=== PATIENT | female | born 1960 | race Caucasian/White ===

== ENCOUNTER 2016-12-17 20:10 | Inpatient (IN) | payer MEDICARE, MEDICAID ==
[~2016-12-17] VITALS: Ht 170.2 cm; Wt 110.5 kg
--- NOTE | 2016-12-17 20:12 | ED.REPORT ---
HPI-Chest Pain 40 and Over Date of Service Dec 17, 2016 ED Provider: Braulio Alcantara MD Pt is a 54 year old female with a history of "aortic problems" per family is brought to the ED via EMS due to a possible STEMI. Per pt's family, the pt was at the pool this evening when she suddenly complained of a headache and chest pain. She then began speaking nonsensically. The pt did not fall or hit her head. Medics found the pt bradycardic with a rate in the 40's and hypotensive with altered mental status, and she received atropine and dopamine en route. History is very limited due to pt lack of participation in the interview. Nursing Notes Stated Complaint: CHEST PAIN Nursing Notes Reviewed: Yes Allergies: Coded Allergies: Unable to Assess (Unverified Allergy, Unknown, 12/17/16) Scheduled PRN Hydromorphone (Hydromorphone) 2 Mg Tablet 2 MG PO q6hr PRN PRN Pain Promethazine (Promethazine) 25 Mg Tablet 25 MG PO Q6H PRN PRN For Nausea Sumatriptan (Imitrex) 25 Mg Tablet 25 MG PO PRN migraine diphenhydrAMINE HCl (Benadryl) 25 Mg Capsule 25 MG PO HS PRN PRN General Time Seen by MD: 20:10 Chief Complaint Chest pain Hx Obtained From: Patient, EMS Arrived By: Ambulance Sudden in Onset?: Yes Onset Occurred: 31 - 45 minutes ago Symptom Duration: Since onset Recent Healthcare: No recent hospitalization Similar Sx Previous: No Past Medical History Past Medical History "aortic problems" Past Surgical History none reported Smoking History Unknown if Ever Smoker Ambulatory Status Independent Unable to Obtain History Past medical history (unable to obtain due to pt condition and altered mental status), Past surgical history (unable to obtain due to pt condition and altered mental status) Review of Systems Unable to Obtain ROS Patient condition (unable to obtain due to pt condition and altered mental status) Physical Exam Initial Vital Signs Vital Signs (First) Date Time Temp Pulse Resp B/P Pulse Ox O2 Delivery O2 Flow Rate FiO2 12/17/16 20:13 36.2 75 22 118/34 98 Nasal Cannula 3 Initial VS: Reviewed General/Constitutional: Awake, Alert Respiratory / Chest: Atraumatic, Breath sounds NL, Breath sounds = bilat, No respiratory distress Cardiovascular: Heart rate NL, Regular rhythm, Heart sounds NL, No gallop, No murmurs, No rubs Abdomen: Atraumatic, Soft, Non-tender, No distention Neck: Atraumatic, Supple, Full range of motion Back: Atraumatic, Full range of motion Lower Extremity / Pelvis / MS: Atraumatic, Full range of motion Skin: Atraumatic, Warm, Dry pale and poorly perfused Neurologic: Speech NL, No motor deficits, No sensory deficits Psychiatric: agitated moaning Head / Eyes: Atraumatic, Normocephalic, PERRL, EOMI ENT: Atraumatic, Airway patent, Mucous membranes moist Upper Extremity / MS: Atraumatic, Full range of motion Interpretation & Diagnostics Lab Results Interpretation Result Diagram: 12/17/16 2322 12/17/16 2035 Test 12/17/16 20:35 Pro-B-Type Natriuretic Peptide 230.6pg/mL (0-249) ECG Interpretation ECG Interpretation: sinus rhythm with a rate of [address] elevation, inferior leads with reciprocal ST depressions no prior EKG available for comparison Time: 20:21 Interpreted by: ED physician CT Head Interpretation IMPRESSION: Prominent and persistent movement by patient. Gross blood is not identified. Small contusions or extra-axial blood cannot be excluded. Procedures Intubation Time: 20:44 Procedure Performed by: ED physician Consent / Setup / Site Prep: No consent - emergent, Time-out performed, Oxygen administered, Pulse oximeter applied, book coverer applied, Hand hygiene observed, Stand sterile technique Patient Position: Sniff position Blade / ET Tube / Route: Hardin scope, Route: oral Procedural Sedation/Analgesia: Sedation: Etomidate Neuromuscular Agent: Rocuronium ET Confirmation: Direct visualization, BS equal, End tidal CO2 device Secured / Marked: Tube marked at teeth Complications: None Post-Procedure: Condition improved, Tolerated procedure well, Patient stable Re-Eval/Medical Decision Med Decision/Clinical Course Patient is a 56-year-old female who presents to the emergency department by EMS with concern for inferior wall ST elevation KS. History is extremely limited as medics have limited information on the patient and she is unable to provide any information. She was reportedly complaining of headache and chest pain prior to becoming altered, confused. In route she was noted to be bradycardic with ST elevation in the inferior leads and became hypotensive at which time atropine was administered without effect and she was placed on a dopamine infusion with improvement in her blood pressure and heart rate. Upon arrival to the emergency department 324 mg of aspirin were given. Given her altered mental status there was some concern for possible intracranial hemorrhage though this did seem unlikely given her overall clinical picture. She was very agitated, thrashing and we are unable to obtain head CT. Due to her profound altered mental status I proceeded with rapid sequence intubation as documented above. She was maintained on dopamine infusion due to her hypotension and bradycardia. EKG: sinus rhythm with a rate of [address] elevation, inferior leads with reciprocal ST depressions no prior EKG available for comparison CT Head: IMPRESSION: Prominent and persistent movement by patient. Gross blood is not identified. Small contusions or extra-axial blood cannot be excluded. Left wrist that is notable as below: WBC 22.6 CBC otherwise unremarkable CMP unremarkable except mildly elevated AST troponin negative BNP 230.6 Given EKG findings she was seen and evaluated by cardiology Dr. Parmar and emergently taken for catheterization. Given good bilateral breath sounds, good end-tidal CO2 tracing, good oxygenation and visualization of the endotracheal tube through the vocal cords incision was made to defer chest x-ray in order to facilitate rapid transport to the crime lab technician. Plan for confirmation of tube placement in the crime lab technician. Source of Hx: EMS Time of Eval: 20:24 Re-Evaluation/Progress Note: Pt rechecked, who is stable. The plan for admission to crime lab technician is discussed. Time of Eval: 20:44 Re-Evaluation/Progress Note: Pt rechecked and intubated without complication. Consultation #1: Referral / Consult Name: Pavithar Khan MD Consulted With: Cardiology Call Returned at: 19:58 Train Planner: Will see patient, Agrees with eval, Agrees with plan Note: Spoke with Dr. Khan, cardiology, who agrees with the evaluation and will see the pt. Consultation #2: Referral / Consult Name: Pavithra Khan MD Consulted With: Cardiology Call Returned at: 20:22 Train Planner: Agrees with eval, Agrees with plan, Accepts admit Note: Consulted with Dr. Khan, who agrees to admit the pt to crime lab technician. Consultation #3: Referral / Consult Name: Ade Ibanez DO Consulted With: Hospitalist Call Returned at: 21:09 Train Planner: Agrees with eval, Agrees with plan, Accepts admit Note: Spoke with Dr. Ibanez, hospitalist, regarding pt's case. Dr. Ibanez agrees with the evaluation and agrees to admit the pt following crime lab technician. Counseled Regarding: Diagnosis, Lab results, Need for admission Discharge & Departure Primary Impression: ST elevation myocardial infarction (STEMI) of inferior wall Additional Impressions: Hypotension Hypotension type: unspecified hypotension type Qualified Code: I95.9 - Hypotension, unspecified Bradycardia Chest pain Chest pain type: unspecified Qualified Code: R07.9 - Chest pain, unspecified Altered mental status Altered mental status type: unspecified Qualified Code: R41.82 - Altered mental status, unspecified Disposition: ADMITTED TO HOSPITAL Discharge Condition All VS Reviewed: Yes Condition: Stable Referrals: [facility] Crit Care Except Billable Proc Time Spent: 30-74 minutes Services Performed: Patient management by me, Time spent at bedside, Reviewing test results, Reviewing imaging, Discussing patient care, Documentation in record, Time with fam/surrogate Scribe Attestation Portions of this note were transcribed by Olga Fernandez. I, Dr. Alcantara personally performed the history, physical exam and medical decision-making; I reviewed and confirmed the accuracy of the information in the transcribed note. copies to: [facility] Braulio Alcantara MD Dec 17, 2016 20:11 OLGA FERNANDEZ Dec 17, 2016 20:20 Med Decision/Clinical Course EKG: sinus rhythm with a rate of [address] elevation, inferior leads with reciprocal ST depressions no prior EKG available for comparison CT Head: IMPRESSION: Prominent and persistent movement by patient. Gross blood is not identified. Small contusions or extra-axial blood cannot be excluded. WBC 22.6 CBC otherwise unremarkable CMP unremarkable except mildly elevated AST troponin negative BNP 230.6 Source of Hx: EMS Time of Eval: 20:24 Re-Evaluation/Progress Note: Pt rechecked, who is stable. The plan for admission to crime lab technician is discussed. Time of Eval: 20:44 Re-Evaluation/Progress Note: Pt rechecked and intubated without complication. Consultation #1: Referral / Consult Name: Pavithra Khan MD Consulted With: Cardiology Call Returned at: 19:58 Train Planner: Will see patient, Agrees with eval, Agrees with plan Note: Spoke with Dr. Khan, cardiology, who agrees with the evaluation and will see the pt. Consultation #2: Referral / Consult Name: Pavithra Khan MD Consulted With: Cardiology Call Returned at: 20:22 Train Planner: Agrees with eval, Agrees with plan, Accepts admit Note: Consulted with Dr. Khan, who agrees to admit the pt to crime lab technician. Consultation #3: Referral / Consult Name: Ade Ibanez DO Consulted With: Hospitalist Call Returned at: 21:09 Train Planner: Agrees with eval, Agrees with plan, Accepts admit Note: Spoke with Dr. Ibanez, hospitalist, regarding pt's case. Dr. Ibanez agrees with the evaluation and agrees to admit the pt following crime lab technician. Counseled Regarding: Diagnosis, Lab results, Need for admission Discharge & Departure Primary Impression: ST elevation myocardial infarction (STEMI) of inferior wall Additional Impressions: Hypotension Hypotension type: unspecified hypotension type Qualified Code: I95.9 - Hypotension, unspecified Bradycardia Chest pain Chest pain type: unspecified Qualified Code: R07.9 - Chest pain, unspecified Altered mental status Altered mental status type: unspecified Qualified Code: R41.82 - Altered mental status, unspecified Disposition: ADMITTED TO HOSPITAL Discharge Condition All VS Reviewed: Yes Condition: Stable Referrals: [facility] Scribe Attestation Portions of this note were transcribed by Olga Fernandez. I, Dr. Alcantara personally performed the history, physical exam and medical decision-making; I reviewed and confirmed the accuracy of the information in the transcribed note. copies to: [facility] Braulio Alcantara MD Dec 17, 2016 20:11 OLGA FERNANDEZ Dec 17, 2016 20:20
[2016-12-17 20:13] VITALS: BP 118/34; PULSE 75; RESP 22; O2SAT 98
[2016-12-17] MEDS ORDERED: Ondansetron 2 mg/mL 2 mL Inj ONE (20:16)
[2016-12-17] MEDS ORDERED: Heparin 5,000 Unit/mL Inj ONE (20:19)
[2016-12-17] MEDS ORDERED: Heparin 25,000 Unit/500 mL 0.45% NS Premix IV ONE (20:19)
[2016-12-17] MEDS ORDERED: HYDR2TAB28 PO (20:26)
[2016-12-17] MEDS ORDERED: DIPH25CA6 PO (20:26)
[2016-12-17] MEDS ORDERED: IMI25 PO (20:26)
[2016-12-17] MEDS ORDERED: PROM25TA14 PO (20:26)
[2016-12-17] MEDS ORDERED: Heparin 1,000 Units/500 mL NS Premix IV ONE ×2 (20:27→21:46)
[2016-12-17] MEDS ORDERED: Nitroglycerin 50,000 mcg/250 mL D5W Premix IV ONE (20:27)
[2016-12-17] MEDS ORDERED: Heparin 10,000 Unit/1,000 mL NS Premix IV ONE (20:28)
[2016-12-17] MEDS ORDERED: Heparin 1,000 Unit/mL 10 mL Inj ONE (20:28)
[2016-12-17] MEDS ORDERED: Atropine 1 mg/10 mL (Code) Syringe ONE (20:31)
[2016-12-17] MEDS ORDERED: Propofol 10,000 mCg/mL 100 mL Inj ONE (20:41)
[2016-12-17] MEDS ORDERED: Midazolam 100 mg/100 mL Premix IV PRN (20:45)
[2016-12-17] MEDS ORDERED: fentaNYL 2,500 mCg/250 mL IV Premix IV SCH (20:45)
[2016-12-17 20:47] VITALS: BP 120/92; PULSE 64; RESP 24; O2SAT 94
[2016-12-17 20:50] VITALS: O2SAT 100
[2016-12-17 20:53] VITALS: BP 135/105; PULSE 84; RESP 26; O2SAT 95
--- NOTE | 2016-12-17 20:56 | DRSVH ---
PROCEDURE: CT BRAIN WITHOUT CONTRAST ([id number]) INDICATIONS: ams, inf CT, pre-heparin TECHNIQUE: Noncontrast 4.5 mm thick angled axial sections acquired from the foramen magnum to the vertex, with c oronal reformats. COMPARISON: None. FINDINGS: Image quality: Poor because of patient movement. Without contrast at bone settings the sinuses and mastoids are grossly clear. The Intracranially because of patient movement the upper half of the brain is essentially nondiagnostic. No parenchymal blood is seen the small contusions or extra-axial fluid collections cannot be excluded although none are suspected. IMPRESSION: Prominent and persistent movement by patient. Gross blood is not identified. Small contus ions or extra-axial blood cannot be excluded. Dictated by: Maxim Royal M.D. on 12/17/2016 at 20:51 Approved by: Maxim Royal M.D. on 12/17/2016 at 20:54
[2016-12-17 21:03] LABS: BASOPHILS % (AUTO) 0.3 % (0-3); EOSINOPHILS % (AUTO) 0.6 % (0-5); NEUTROPHILS % (AUTO) 75.4 % (40-74); Platelet Count 239 bil/L (150-400)
[2016-12-17 21:10] LABS: TROPONIN T 0.01 ug/L (0.0-0.011)
[2016-12-17 21:21] LABS: Magnesium 1.8 mg/dL (1.6-2.6)
[2016-12-17] MEDS ORDERED: Polyethylene Glycol (PEG) 17 Gm Powder PO PRN (21:25)
[2016-12-17] MEDS ORDERED: Alum-Mag Hydrox-Simeth 30 mL Suspension PO PRN (21:25)
[2016-12-17] MEDS ORDERED: Ondansetron 2 mg/mL 2 mL Inj IVPUSH PRN ×2 (21:25→23:40)
[2016-12-17] MEDS ORDERED: Amiodarone 150 mg/100 mL D5W Premix IV ONE (21:36)
[2016-12-17] MEDS ORDERED: Amiodarone 50 mg/mL 3 mL Inj ONE (21:43)
[2016-12-17] MEDS ORDERED: Sodium Bicarb (50 mEq) 8.4% 1 mEq/mL 50 mL Syringe ONE (22:01)
[2016-12-17] MEDS ORDERED: fentaNYL 2,500 mCg/250 mL 2,500 MCG in IV Premix 1 EACH IV SCH (22:02)
--- NOTE | 2016-12-17 23:12 | ABG ---
DateTimeAnalyzed 23:06:00 -_ pH ____7.336 - 7.350 7.450 pCO2 ___36.5__ -mmHg 35.0 45.0 pO2 391 -mmHg 69.0 116 HCO3- ___19.0__ -mmol/L 22.0 26.0 ABE ___-5.7__ -mmol/L -2.0 2.0 tHb ___13.7__ -g/dL 12.0 18.0 O2Hb ___98.0__ -% COHb ____0.7__ -% 0.0 1.5 MetHb ____0.8__ -% 0.4 1.5 sO2 ___99.5__ -% FIO2 __100.0__ -% PEEP ____5.0__ -cmH2O Set_RR ___20.0__ -b/min Vt __480.0__ -L Drawn By MD - Date/Time Notified____ 23:12:00 -_ Spontaneous_RR ___20.0__ -b/min Oxygen Device 1 VENTILATOR - Notified By MD - Notified Whom RN R.GOLDEN - B 755 -mmHg tO2 ___19.8__ -Vol% Maco test N/A -
[2016-12-17 23:25] LABS: BASOPHILS % (AUTO) 0.2 % (0-3); EOSINOPHILS % (AUTO) 0 % (0-5); MONOCYTES % (AUTO) 13.7 % (4-12); Mean Corpuscular Volume 88.1 fL (81-100); NEUTROPHILS % (AUTO) 79.2 % (40-74); Platelet Count 253 bil/L (150-400)
[2016-12-17] MEDS ORDERED: Atropine 1 mg/10 mL (Code) Syringe IVPUSH PRN (23:40)
[2016-12-18 00:19] LABS: Magnesium 1.7 mg/dL (1.6-2.6)
[2016-12-18 00:23] LABS: TROPONIN T 5.02 ug/L (0.0-0.011)
[2016-12-18] MEDS: Propofol Inj 1,000,000 MCG in IV Premix 1 EACH IV SCH ×2 (00:28→03:49)
[2016-12-18] MEDS: 0.9% Sodium Chloride 1,000 ML IV SCH ×3 (00:33→08:47)
[2016-12-18] MEDS: Amiodarone 360 mg/200 mL D5W 360 MG in IV Premix 1 EACH IV SCH ×2 (00:34→05:28)
[2016-12-18 01:04] VITALS: BP 118/47; O2SAT 100
[2016-12-18] MEDS ORDERED: KCl 40 mEq/100 mL Premix (K 3 - 3.7 & Creat < 2) IV ONE (01:05)
[2016-12-18] MEDS: Chlorhexidine 0.12% 15 mL Oral Solution MT SCH ×3 (01:45→08:46)
[2016-12-18 01:51] LABS: APPEARANCE,URINE HAZY (CLEAR,HAZY); COLOR,URINE YELLOW (YELLOW); OCCULT BLOOD,URINE LARGE (NEGATIVE); PH,URINE 5.5 (5.0-8.0); UROBILINOGEN,URINE NORMAL (NORMAL)
--- NOTE | 2016-12-18 01:51 | PCM.HPMED ---
Subjective Date of Service Dec 17, 2016 Primary Provider: Admitting Physician: Pavithra Khan MD Primary Care Physician: Merary Attending Physician: Pavithra Khan MD Admit Status: From the Emergency Department, Critical Care Chief Complaint: Chest pain History of Present Illness: Germaine Garrett is a 56 year old female with a history of chronic pain with care home narcotic habituation, lower extremity edema and "heart issues" who presented to the ED via EMS with chest pain. She was taken directly to the cardiac cath lab technologist after ECG showed significant ST elevation. History obtained via chart review and family due to patient condition. The patient's mother and step father state that their daughter is here from [facility] and that they only live here 3-5months out of the year. They note that they actually don't see the patient very often but deny a history of chest pain or similar episodes in the past. However, per the patient's mother she has chronic lower extremity swelling, issues with her heart and prior ED visits in [place], [place] for "heart issues". Family report a history of chronic pain, multiple back/neck surgeries as well as ankle surgery but deny additional health problems or medications. Symptoms occurred just prior to arrival and occurred suddenly after the patient was swimming. Parents state that the patient was complaining of chest pain, a warm sensation in her neck, and seemed to be more confused with nonsensical speech so they called 911. On arrival the paramedics reportedly found the patient to be bradycardic with a rate in the 40s and hypotensive. She received atropine and dopamine in route. At presentation she was hemodynamically hemodynamically stable, intubated in the ED and taken to the cardiac cath lab technologist. In the ED, labs including CBC, CMP, troponin and BNP were significant for a negative troponin, BNP 230.6, mildly elevated AST and leukocytosis with a WBC of 22.6. ECG showed sinus rhythm with a rate of [address] elevation in the inferior leads with reciprocal ST depressions. A head CT no acute intracranial abnormality. Review of Systems: Unable to perform complete review of systems secondary to patient condition. Allergies Coded Allergies: Unable to Assess (Unverified Allergy, Unknown, 12/17/16) Home Medications As per most recent record. Medication rec not completed from overnight at the time of admission. AM team to confirm medications and order as appropriate. Hydromorphone 2 MG PO q6hr PRN Pain Promethazine 25 MG PO Q6H PRN For Nausea Sumatriptan 25 MG PO PRN migraine diphenhydrAMINE HCl 25 MG PO HS PRN PMH Unable to obtain complete history due to pt condition. Per the patient's family she has a history of chronic back/neck pain currently on suboxone therapy, migraines, seasonal allergies, chronic lower extremity edema and "aortic/heart problems". Surgical History Multiple back/neck surgeries Ankle surgery Family History Per the patient's mother, no family history of diabetes or early cardiovascular disease. Social History Hx Alcohol Use: No Hx Substance Use: No Hx Tobacco Use: Yes Living Arrangement: with Family Additional Information Patient lives in [place], [place] with her partner and is currently on social security. Exam Vital Signs Vital Sign - Last Date Time Temp Pulse Resp B/P Pulse Ox O2 Delivery O2 Flow Rate FiO2 12/17/16 20:53 84 26 135/105 95 Mechanical Ventilator 12/17/16 20:47 3 12/17/16 20:13 36.2 Exam General: Intubated and sedated obese female. HEENT: Normocephalic, atraumatic. External ears without defect. Pupils equal, round, and sluggish but reactive to light. Cardiovascular: Difficult to auscultate secondary to IABP but sounds irregular without murmurs or rubs. Normal rate. Pulmonary: Mechanically ventilated with equal air entry bilaterally and symmetric chest rise. Lungs sounds diminished but grossly clear without obvious crackles or wheezing. Abdomen: Soft, obese and nondistended. Unable to asses for tenderness due to patient sedation. Bowel tones diminished. No masses appreciated. Extremities: Distal pulses 2/4 lower ext b/l, trace edema ankles w/reticular veins medial/lateral malleolus, old surgical scar left ankle, no cyanosis. B/l cath sites at the groin without hematoma or bleeding, IABP in place. : Jackman catheter in place. Skin: Cool, pale with normal turgor, no rashes or ulcerations appreciated. Neurological: Sedated. Unable to asses. Pupils are sluggish but equal, round and reactive to light. Ambulates with walker at baseline. Psychiatric: Normal mood and affect. Alert and oriented to person, place, and time. Lab and Diagnostics Labs Laboratory Tests Test 12/17/16 20:35 12/17/16 21:28 White Blood Count 22.6th/mm3 (3.8-10.1) Red Blood Count 4.44mil/mm3 (3.90-5.20) Hemoglobin 13.3g/dL (12.0-15.6) Hematocrit 39.5% (35.0-46.0) Mean Corpuscular Volume 89.0fL (81-100) Mean Corpuscular Hemoglobin 30.0pg (27.0-35.0) Mean Corpuscular Hemoglobin Concent 33.7% (32.0-37.0) Red Cell Distribution Width 14.5% (12.3-15.4) Platelet Count 239bil/L (150-400) Neutrophils (%) (Auto) 75.4% (40-74) Lymphocytes (%) (Auto) 13.3% (14-46) Monocytes (%) (Auto) 10.0% (4-12) Eosinophils (%) (Auto) 0.6% (0-5) Basophils (%) (Auto) 0.3% (0-3) Sodium Level 140mEq/L (134-144) Potassium Level 3.9mEq/L (3.5-5.2) Chloride Level 99mEq/L (97-108) Carbon Dioxide Level 17mmol/L (18-29) Blood Urea Nitrogen 10mg/dL (6-24) Creatinine 0.92mg/dL (0.57-1.00) Estimat Glomerular Filtration Rate 91mL/min (>59) Glucose Level 159mg/dL (60-99) Calcium Level 9.2mg/dL (8.5-10.1) Magnesium Level 1.8mg/dL (1.6-2.6) Total Bilirubin 0.7mg/dL (0.0-1.2) Aspartate Amino Transf (AST/SGOT) 84U/L (0-50) Alanine Aminotransferase (ALT/SGPT) 30U/L (0-32) Alkaline Phosphatase 147U/L (25-150) Troponin T 0.010ug/L (0.0-0.011) Pro-B-Type Natriuretic Peptide 230.6pg/mL (0-249) Total Protein 6.1g/dL (6.4-8.4) Albumin 3.7g/dL (3.4-5.0) Result Diagram: 12/17/162034 X-Rays, CTs and MRIs (12/17/16) CT BRAIN WITHOUT CONTRAST INDICATIONS: ams, inf SC, pre-heparin IMPRESSION: Prominent and persistent movement by patient. Gross blood is not identified. Small contusions or extra-axial blood cannot be excluded. Dictated and approved by: Maxim Royal M.D. on 12/17/2016 at 20:51 ADDENDUM This report includes an Addendum and supersedes previous reports for this exam. (12/17/16) CT BRAIN WITHOUT CONTRAST INDICATIONS: ams, inf SC, pre-heparin IMPRESSION: Prominent and persistent movement by patient. Gross blood is not identified. Small contusions or extra-axial blood cannot be excluded. Dictated and approved by: Maxim Royal M.D. on 12/17/2016 at 20:51 ADDENDUM: Patient was brought back to the scanner . This attempt shows the axial images and reconstructions in bone setting images. There is no acute intracranial abnormality. No old or acute infarct is seen. Monsivais-white matter interface is normal. No mass effect or edema is seen. Summary impression: No abnormalities found intracranially. Dictated and approved by: Maxim Royal M.D. 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 Admitted to the CCU from the cardiac cath lab technologist with IABP. Acute STEMI. Present on admission. Stable -Pt presented with sudden onset of severe chest pain. No known CAD or hx of similar episode, but positive hx of current tobacco use. -She is visiting from [place], [place]. Family deny hx of HTN, HLD or DM. Will need to request outside records from [place], [place] -ECG & head CT, as above. Potassium 3.9, magnesium 1.8, BNP 230.6. -CODE BART called to the cat lab for hemodynamic instability and ventricular arrhythmias. Pt received 4 shocks, no compressions. -Admitted to CCU with IABP and continuous cardiac monitoring. -Cardiology tentatively planning for additional intervention as patient stabilizes. -Continue amiodarone and heparin per Cardiology. Greatly appreciate recommendations and expertise. -IV fluids, NS at 150mls/hr. -Lipid panel, HbA1c pending. -CBC, CMP in the morning -Echocardiogram ordered Acute respiratory failure. Present on admission. Active -Pt hypotensive with altered mental status in setting of acute STEMI. -Intubated in the ED prior to cath procedure -Sedated and intubated on arrival to CCU. -Continue ventilator support, repeat ABG -Fentanyl, propofol for sedation -Titrate down on sedation as tolerated with pressure support trial as able. Altered mental status, acute. Present on admission. Active. -Uncertain etiology. Possibly due to hypotension -Pt's family deny history of alcohol or illicit drug use and confirm chronic pain, treated with Suboxone. -Head CT negative for acute intracranial abnormality. -Currently intubated and sedated in the CCU. Will need to reevaluate when patient awake. Leukocytosis, acute. Present on admission. Active -Likely secondary to stress reaction in setting of STEMI. -Repeat CBC, chest xray -Lactic acid, procalcitonin in the morning Hyperglycemia, likely acute. Present on admission. Active. -Pt without known history of diabetes. Limited records as patient is from out of town. -Serum glucose 159 at presentation, likely stress reaction. -HbA1c pending Chronic pain. Present on admission. Active. -Pt with history of multiple back/neck as well as ankle surgeries. Currently outpatient treatment- Dilaudid. -Currently sedated on fentanyl and propofol. -Reevaluate when patient awake CODE STATUS: FULL CODE GI Prophylaxis: Famotidine DVT Prophylaxis: Sub-q Heparin, 5,000units Q8h PRN: Acetaminophen-fever/headache/mild/moderate pain Antiemetics, as needed Bowel regimen, as needed. Disposition: Patient admitted under inpatient status with expected length of stay > 2 midnights for severity of present symptoms, complexities of treatment plan and risk for adverse event. Pain Evaluation: Adequate Pain Control GI Prophylaxis: H2 abundio VTE Prophylaxis: Other (IV heparin post STEMI) Resuscitation Status: CPR: Attempt Resuscitation Time spent 55 minutes of ccu time spend with patient evaluation, plan development and management Attending Statement The patient was seen and examined together with house staff on 12/17/2016 and I agree with the history, exam and plan as outlined in the note above. Carito Conner DO Dec 17, 2016 21:25 Ade Ibanez DO Dec 18, 2016 05:23
[2016-12-18 02:46] VITALS: BP 111/43; PULSE 63; RESP 20; O2SAT 100
[2016-12-18 03:03] VITALS: BP 105/40; PULSE 67; RESP 20; O2SAT 100
--- NOTE | 2016-12-18 04:31 | DI95 ---
[address] [address] INTERVENTIONAL CARDIAC CATHETERIZATION PATIENT: ANDRÉS TEMPLE : 1960 MR#: [id number] ADMIT: 12/17/2016 JOB ID: [id number] PATIENT PROFILE: The patient is a 56-year-old woman who presented with acute inflow posterior myocardial infarction and acute confusional state. PROCEDURE: 1. Retrograde left heart catheterization. 2. Selective angiography. 3. Intra-atrial balloon insertion. 4. Defibrillation x4. 5. Percutaneous coronary intervention to the occluded proximal right coronary artery. VASCULAR CLOSURE DEVICE: None. COMPLICATIONS: None. METHOD: Retrograde left heart catheterization was performed from the right groin under lidocaine local anesthesia using a 6-[place] Citizen sheath. The patient was hypotensive and bradycardic. A central venous access was obtained from the right groin by placing a 6-[place] Citizen sheath under ultrasound guidance. Selective angiogram was performed in multiple projections, including cranial and caudal angulation with hand injected contrast via JL4 and JR4. The patient remained hypotensive despite intravenous dopamine. Arterial access was then obtained from the left groin . A 40 cc intra-aortic balloon was then placed in the descending thoracic aorta under fluoroscopy. A 6-[place] Citizen JR4 guide was advanced to the right coronary ostium. A Run-through wire was used to cross the occluded right coronary artery lesion. The patient developed reperfusion arrhythmia which degenerated into ventricular fibrillation. She required defibrillation four times before sinus rhythm was reestablished. After the Run-through wire crossed the lesion, it demonstrated MATTHEW-3 flow with sub hematoma. The procedure was terminated. The arterial and venous sheaths were secured in situ. The patient was transferred to the intensive care unit in improved condition. TOTAL CONTRAST USED: 120 cc. FLUOROSCOPY TIME: 7 minutes. RESULTS: 1. Selective coronary angiogram. a. Left main coronary artery: Normal. b. The left anterior descending artery is transapical and has minor 30% stenosis in the midportion. c. The circumflex artery has minor irregularity. d. The dominant and large right coronary artery is occluded in the proximal portion. 2. Percutaneous coronary intervention was performed to the occluded right coronary artery, was performed successfully. There is residual 30% stenosis with MATTHEW-3 flow. 3. Noted, the ST-segment returned to baseline at the end of the procedure.
--- NOTE | 2016-12-18 05:05 | ABG ---
DateTimeAnalyzed 04:56:41 -_ pH ____7.491 - 7.350 7.450 pCO2 ___26.4__ -mmHg 35.0 45.0 pO2 234 -mmHg 69.0 116 HCO3- ___20.1__ -mmol/L 22.0 26.0 ABE ___-2.5__ -mmol/L -2.0 2.0 tHb ___13.9__ -g/dL 12.0 18.0 O2Hb ___99.6__ -% COHb ____1.5__ -% 0.0 1.5 MetHb ____0.0__ -% 0.4 1.5 FIO2 ___21.0__ -% PEEP ____5.0__ -cmH2O Set_RR 20 -b/min Vt __480.0__ -L Drawn By MD - Date/Time Notified____ 05:04:00 -_ Spontaneous_RR 20 -b/min Oxygen Device 1 VENTILATOR - Notified By MD - Notified Whom RN R.GOLDEN - K+ ____4.8__ -mmol/L 3.5 5.0 Maco test N/A -
[2016-12-18 05:06] LABS: BASOPHILS % (AUTO) 0.3 % (0-3); EOSINOPHILS % (AUTO) 0 % (0-5); MONOCYTES % (AUTO) 17.6 % (4-12); Mean Corpuscular Hemoglobin 29.4 pg (27.0-35.0); Mean Corpuscular Volume 86.1 fL (81-100); NEUTROPHILS % (AUTO) 66.4 % (40-74); Platelet Count 254 bil/L (150-400)
[2016-12-18 05:11] VITALS: BP 112/33; O2SAT 100
[2016-12-18] MEDS ORDERED: 0.9% Sodium Chloride 500 ML IV SCH (05:15)
[2016-12-18 06:10] LABS: TROPONIN T 6.93 ug/L (0.0-0.011)
[2016-12-18 06:12] LABS: Magnesium 1.7 mg/dL (1.6-2.6); Phosphorus 2.5 mg/dL (2.5-4.9)
--- NOTE | 2016-12-18 06:18 | NUR ---
Admission Code Blue called while patient was in the laborer beam house. Per report, the patient was in VT/VF and was shocked a total of 4 times while in the laborer beam house. Pt transferred to CCU room #2021 at 2300. Balloon pump to left femoral artery, Central Line and Arterial Line to Right Femoral. Additional PIV access attempted multiple times by several nurses with no success. Cardiac/TELE: SR with many PVCs. Pt having periods of VT. Amiodarone gtt started as patient was loaded with Amiodarone in the laborer beam house. Dopamine gtt infusing at 10-18mcg/kg/minute. Per Dr. Parmar, Dopamine to be titrated to maintain MAP goal but is not to be turned down lower than 5mcg/kg/minute. Pt has patent left AC PIV. Pulses weak to palpation but present in all four extremities. Pt is on the K/Mg protocol. K level of 3.4 replaced once and repeat lab draw value pending along with magnesium level. Respiratory: Ventilator Mode PRVC, 50% FiO2, Peep +5, RR 15, vT480. ABG showed high pH and and pO2, and low CO2. Rate had been decreased from 20 and FiO2 decreased from 100, to 70 and finally to 50%. Lung Sounds Clear. GI: OG tube placed and placement verified via CXR. OG tube output dark blood colored fluid; shift total 150ml. MD made aware and GI prophylaxis ordered. : Jackman placed per MD order and for strict I&O. Jackman draining chris colored urine; shift total 350ml NS infusing at 150ml/hour. X2 500ml boluses given to increase urine output and BP with good success. Dopamine at 18mcg/kg/minute based on actual body (110KG) which was started in the ED; will mention to Day RN. Propofol at 20mcg/kg/minute, Fentanyl at 60mcg/hour. Amiodarone at 1mg/minute. MD made aware of need for Central Line/PICC placement as patient currently has 2 access sites, needs CVP monitoring, and is a difficult IV start. MRSA swab was collected and sent to the lab. Addendum: 12/18/16 at 2100 by MICHELLE GOLDEN RN Safe patient handoff was received from Meat Specialist Staff Benedict Kathleen and Dr. Parmar. IV sites checked for patency, labeled appropriately, and have good blood return. Waveform on baloon pump observed and said was alright per Dr. Parmar and Benedict Kathleen. Pulses palpated is and present in all four extremities. Dr. Parmar confirmed he wanted Dopamine gtt titrated to maintain MAP from Arterial line on monitor which is connected via slave cable from the Right Femoral ART Line.
[2016-12-18] MEDS ORDERED: EPINEPHrine 1 mg/mL Inj 10 MG in 0.9% Sodium Chloride 240 ML IV SCH (07:05)
[2016-12-18] MEDS ORDERED: Pantoprazole 4 mg/mL 10 mL Inj IVPUSH SCH (07:30)
[2016-12-18 07:41] VITALS: BP 90/41; O2SAT 97
[2016-12-18] MEDS ORDERED: levETIRAcetam Inj 1,000 MG in IV Premix 1 EACH IV ONE (07:45)
[2016-12-18 08:00] VITALS: BP_SYST 108; BP_SYST 181; BP_DIAS 38; BP_DIAS 72; PULSE 70; RESP 15; O2SAT 100; O2SAT 97
--- NOTE | 2016-12-18 08:37 | CONS ---
[address] [address] CONSULTATION REPORT PATIENT: ANDRÉS TEMPLE : MR#: [id number] ADMIT: JOB ID: [id number] DATE OF SERVICE: 12/17/2016 REQUESTED BY: Dr. Alcantara REASON FOR CONSULTATION: [id number]. HISTORY: Was obtained from Dr. Alcantara and chart review. The patient is not able to provide any meaningful history. Apparently, the patient is a 54-year-old woman who was at the pool. She complained of headache and chest pain. Family called medics. When medics arrived at the scene, the patient was incoherent. Her heart rate is in the 40s with a blood pressure in the 80s. She was given atropine, dopamine, and aspirin. The patient arrived at [facility] at 8:20 p.m. She will go for head CT scan. PAST MEDICAL HISTORY: Unobtainable. CURRENT MEDICATIONS: 1. Hydromorphone. 2. Promethazine 25 mg. Allergies, social history, family history, and review of systems unobtainable. EXAMINATION: Reveal a middle-aged, obese lady, appearing in mild distress. Temperature is 35.6. Blood pressure is 90/60 on dopamine. Pulse 47. Skin is cool and dry. Head and face have normal configuration. Anicteric sclerae. Dry mucosa. Neck supple. No jugular venous distention or carotid bruits. Chest: Normal expansion. Lungs are clear to auscultation anteriorly. Heart: Distant heart sounds. Abdomen: Obese, nontender. Extremities: No clubbing, cyanosis, or edema. Neurology: The patient has altered mental status. She has spontaneous movement of all extremities. IMPRESSION: 1. Acute inferior myocardial infarction. 2. Acute confusional state. 3. Bradycardia. 4. Hypotension. 5. Obesity. PLAN: Emergent head CT will be obtained. If there is no intracranial bleeding, the patient will undergo emergent coronary angiogram and possible percutaneous intervention.
--- NOTE | 2016-12-18 08:46 | PCM.HPMED ---
Subjective Date of Service Dec 18, 2016 Primary Provider: Admitting Physician: Pavithra Khan MD Primary Care Physician: Nopkeshia Attending Physician: Allie Jain DO Chief Complaint: Chest pain History of Present Illness: Germaine Garrett is a 56 year old female with a history of chronic pain with manager long term care narcotic habituation, lower extremity edema and "heart issues" who presented to the ED via EMS with chest pain. The patient is here from [facility]. Per the patient's mother she has chronic lower extremity swelling, issues with her heart and prior ED visits in [place], [place] for "heart issues". Family report a history of chronic pain, multiple back/neck surgeries as well as ankle surgery but deny additional health problems or medications. Symptoms occurred just prior to arrival and occurred suddenly after the patient was swimming. Parents state that the patient was complaining of chest pain, a warm sensation in her neck, and seemed to be more confused with nonsensical speech so they called 911. On arrival the paramedics reportedly found the patient to be bradycardic with a rate in the 40s and hypotensive. She received atropine and dopamine in route. At presentation she was hemodynamically stable, EKG showed ST elevation in inferior leads. She was intubated in the ED and taken to the laboratory technical specialist. In the laboratory technical specialist, the RCA was found to be occluded. A guide wire was used to cross the lesion, and she developed a reperfusion arrhythmia and degenerated in to Vfib. She required defibrillation 4 times before sinus rhythm was reestablished. She was also found to have developed an RCA hematoma. She was placed on dopamine and amiodarone infusions, as well as an intra-aortic balloon pump and brought to her room. At around 7:00 AM, she began to become hypotensive, and dopamine infusion was titrated to max dose, to poor effect. She continued to become hypotensive and bradycardic, with BP reaching 50s/30s. Epinephrine boluses were administered multiple times, which temporarily corrected her hypotension, with a total of 1.25 amps given. In the meantime, she was placed on epinephrine drip and taken off fentanyl and propofol. She began to develop a generalized tremor, but this was attributed to shivering as she was somewhat responsive, nodding her head to questions at one point during the tremor. Echocardiogram was done urgently and showed dissection throughout the aortic arch. Cardiology was contacted and the decision was made to urgently transfer her. Allergies Coded Allergies: Unable to Assess (Unverified Allergy, Unknown, 12/17/16) PMH Social History Hx Alcohol Use: No Hx Substance Use: No Hx Tobacco Use: Yes Living Arrangement: with Family Exam Vital Signs Vital Sign - Last Date Time Temp Pulse Resp B/P Pulse Ox O2 Delivery O2 Flow Rate FiO2 12/18/16 08:00 75 181/72 97 60 12/18/16 03:03 20 Mechanical Ventilator 12/18/16 02:46 36.0 12/17/16 20:47 3 Intake and Output 12/17/16 12/17/16 12/18/16 Cumulative From/Thru 15:00 23:00 07:00 12/17/16 20:13 - 12/18/16 06:18 Intake Total 1800 ml 2141 ml 3941 ml Output Total 500 ml 500 ml Balance 1800 ml 1641 ml 3441 ml Intake Oral 0 ml 0 ml IV Total 1800 ml 2141 ml 3941 ml Output Urine Total 350 ml 350 ml Gastric Drainage Total 150 ml 150 ml # Bowel Movements 0 0 Lab and Diagnostics Result Diagram: 12/18/16 0500 12/18/16 0707 X-Rays, CTs and MRIs (12/17/16) CT BRAIN WITHOUT CONTRAST INDICATIONS: ams, inf NJ, pre-heparin IMPRESSION: Prominent and persistent movement by patient. Gross blood is not identified. Small contusions or extra-axial blood cannot be excluded. Dictated and approved by: Maxim Royal M.D. on 12/17/2016 at 20:51 ADDENDUM This report includes an Addendum and supersedes previous reports for this exam. (12/17/16) CT BRAIN WITHOUT CONTRAST INDICATIONS: ams, inf NJ, pre-heparin IMPRESSION: Prominent and persistent movement by patient. Gross blood is not identified. Small contusions or extra-axial blood cannot be excluded. Dictated and approved by: Maxim Royal M.D. on 12/17/2016 at 20:51 ADDENDUM: Patient was brought back to the scanner . This attempt shows the axial images and reconstructions in bone setting images. There is no acute intracranial abnormality. No old or acute infarct is seen. Monsivais-white matter interface is normal. No mass effect or edema is seen. Summary impression: No abnormalities found intracranially. Dictated and approved by: Maxim Royal M.D. on 12/17/2016 at 21:16 Assessment & Plan 56 year old female with a history of "heart issues" and chronic back pain with fci narcotic habituation who presented to the ED via EMS for possible STEMI. Admitted to the CCU from the laboratory technical specialist with IABP. Acute STEMI. Present on admission. Stable -Pt presented with sudden onset of severe chest pain. No known CAD or hx of similar episode, but positive hx of current tobacco use. -She is visiting from [place], [place]. Family deny hx of HTN, HLD or DM. Will need to request outside records from [place], [place] -ECG & head CT, as above. Potassium 3.9, magnesium 1.8, BNP 230.6. -CODE BLUE called to the cat lab for hemodynamic instability and ventricular arrhythmias. Pt received 4 shocks, no compressions. -Admitted to CCU with IABP and continuous cardiac monitoring. -Cardiology tentatively planning for additional intervention as patient stabilizes. -Continue amiodarone and heparin per Cardiology. Greatly appreciate recommendations and expertise. -IV fluids, NS at 150mls/hr. -Lipid panel, HbA1c pending. -CBC, CMP in the morning -Echocardiogram ordered Acute respiratory failure. Present on admission. Active -Pt hypotensive with altered mental status in setting of acute STEMI. -Intubated in the ED prior to cath procedure -Sedated and intubated on arrival to CCU. -Continue ventilator support, repeat ABG -Fentanyl, propofol for sedation -Titrate down on sedation as tolerated with pressure support trial as able. Altered mental status, acute. Present on admission. Active. -Uncertain etiology. Possibly due to hypotension -Pt's family deny history of alcohol or illicit drug use and confirm chronic pain, treated with Suboxone. -Head CT negative for acute intracranial abnormality. -Currently intubated and sedated in the CCU. Will need to reevaluate when patient awake. Leukocytosis, acute. Present on admission. Active -Likely secondary to stress reaction in setting of STEMI. -Repeat CBC, chest xray -Lactic acid, procalcitonin in the morning Hyperglycemia, likely acute. Present on admission. Active. -Pt without known history of diabetes. Limited records as patient is from out of [facility]. -Serum glucose 159 at presentation, likely stress reaction. -HbA1c pending Chronic pain. Present on admission. Active. -Pt with history of multiple back/neck as well as ankle surgeries. Currently outpatient treatment- Dilaudid. -Currently sedated on fentanyl and propofol. -Reevaluate when patient awake CODE STATUS: FULL CODE GI Prophylaxis: Famotidine DVT Prophylaxis: Sub-q Heparin, 5,000units Q8h PRN: Acetaminophen-fever/headache/mild/moderate pain Antiemetics, as needed Bowel regimen, as needed. Disposition: Patient admitted under inpatient status with expected length of stay > 2 midnights for severity of present symptoms, complexities of treatment plan and risk for adverse event. Pain Evaluation: Adequate Pain Control GI Prophylaxis: H2 abundio VTE Prophylaxis: Other (IV heparin post STEMI) Resuscitation Status: CPR: Attempt Resuscitation Haile Ocasio Dec 18, 2016 08:46
--- NOTE | 2016-12-18 09:34 | DRSVH ---
[facility] [address] [place] [address] Echocardiogram Report Name: ANDRÉS TEMPLE Study Date: 12/18/2016 Elias ht: 67 in Hospital Exam Location: [facility] ht: 244 lb Gender: Female BSA: 2.2 m2 : 02/13/1962 Age: 54 yrs BP: 179/72 mmHg Reason For Study: CAD Performed By: Tiffanie Alvarez Referring Physician: CARLOS SCHULTE Interpretation Summary The ejection fraction is estimated to be 70-75%. The right ventricle is mildly dilated with low normal systolic function. There is severe aortic regurgitation. The aortic root is severely dilated. Disecting ascending aortic aneurysm measuring 5.8 cm at cornary sinus level and 5.9 cm distally. Dissection extends at least to aortic arch. There is a trivial to small pericardial effusion noted. Emergent transfer being arranged for [facility] for emergent surgical evaluation/management. Procedure: A two-dimensional transthoracic echocardiogram with color flow and Doppler was performed. The study quality was technically difficult. There is no prior echocardiogram noted for this patient. The heart rate ranged between 72-85 bpm during the study. Left Ventricle: The left ventricle is normal in size, wall thickness, and systolic function without any focal wall motion abnormalities. The ejection fraction is estimated to be 70-75%. Right Ventricle: The right ventricle is mildly dilated. Right ventricular systolic function is at the lower limits of normal. Atria: The left atrium grossly appears normal in size. Mitral Valve: The mitral valve is grossly normal. There is no mitral regurgitation noted. Aortic Valve: There is no aortic valve stenosis. There is severe aortic regurgitation. Tricuspid Valve: The tricuspid valve is not well visualized, but is grossly normal. Pulmonic Valve: The pulmonic valve is not well visualized. Great Vessels: The aortic root is severely dilated. Disecting ascending aortic aneurysm measuring 5.8 cm at cornary sinus level and 5.9 cm distally. Dissection extends at least to aortic arch. Pericardium/ Pleura There is a trivial to small pericardial effusion noted. MMode/2D Measurements & Calculations IVC diam: 2.4 cm Ao root diam: 5.8 cm Ao Arch Diam (Prox Trans): 3.5 cm Reading Physician:09:33 AM
[2016-12-18] MEDS ORDERED: Sodium Bicarb (50 mEq) 8.4% 1 mEq/mL 50 mL Syringe ONE ×2 (09:52→10:03)
--- NOTE | 2016-12-18 09:54 | ABG ---
DateTimeAnalyzed 09:48:00 -_ pH ____7.186 - 7.350 7.450 pCO2 ___30.0__ -mmHg 35.0 45.0 pO2 135 -mmHg 69.0 116 HCO3- ___10.9__ -mmol/L 22.0 26.0 ABE __-16.2__ -mmol/L -2.0 2.0 tHb ___13.3__ -g/dL 12.0 18.0 O2Hb ___97.0__ -% COHb ____0.0__ -% 0.0 1.5 MetHb ____0.8__ -% 0.4 1.5 sO2 ___97.8__ -% FIO2 ___60.0__ -% PEEP ____5.0__ -cmH2O Set_RR ___15.0__ -b/min Vt __480.0__ -L Drawn By as - Date/Time Notified____ 09:53:00 -_ Spontaneous_RR ___15.0__ -b/min Oxygen Device 1 VENTILATOR - Notified By ams - Notified Whom Lena Hoeft, RN - B 757 -mmHg tO2 ___18.4__ -Vol% Maco test N/A -
[2016-12-18] MEDS ORDERED: EPINEPHrine 0.1 mg/mL 10 mL Syringe ONE (10:25)
[2016-12-18] MEDS ORDERED: Atropine 1 mg/10 mL (Code) Syringe ONE (10:25)
[2016-12-18] MEDS ORDERED: 0.9% Sodium Chloride 10 mL Inj ONE (10:25)
--- NOTE | 2016-12-18 11:03 | PROG NOTE ---
[address] [address] PROGRESS NOTE PATIENT: ANDRÉS TEMPLE : 1960 MR#: [id number] ADMIT: 12/17/2016 JOB ID: [id number] DATE: 12/18/2016 CRITICAL CARE NOTE: I was called to the bedside to help with the evaluation and care of the patient, along with Dr. Tracey and the hospital staff. She presented yesterday evening with headache, chest pain, confusion and garbled speech. Her EKG showed acute inferior ST-segment elevation, and a CT scan of her head did not show any significant abnormalities, and she was taken to the catheterization laboratory by Dr. Khan who found that she had proximal aortic dilatation. He was able to engage the ostium of the right coronary artery, which was occluded near the ostium. He was able to get a wire in the region of the occlusion and establish flow with resolution of the ST-segment changes but could not pass a wire to the jena coronary artery. As we reviewed those images again this morning, it appears that there is evidence of aortic regurgitation, and there appears to be a dissection plane faintly visible with the wisps of contrast that regurgitated into the proximal aorta. This was not apparent at the time the patient had a balloon pump placed. Because of hypotension she was treated with volume and dopamine for her bradycardia. She was relatively stable during the night, and an echocardiogram this morning showed clear evidence of an ascending aortic dissection with a dissection flap seen in the region of the aortic arch proximal to the origin of the left subclavian, though this could not be traced further because of decreased image quality. Dr. Tracey read the echocardiogram and immediately became involved with the patient's care and made attempts to contact a cardiac surgery program that could accept the patient. [facility] was able to accept the patient, and Dr. Tracey spoke with Dr. Adilson Lyle, one of the cardiothoracic surgeons there, who accepted the patient in transfer. He advised leaving the intraaortic balloon pump in. As I examined the patient at the bedside she showed evidence of moderate diffuse pallor and somewhat cold extremities but she had good carotid pulses bilaterally but the pulses in her left upper extremity were very faint. The other notable finding is the fact that her intra-abdominal pressure waveform looked normal but the systolic pressure was 50-60 mm lower than that recorded from the right common femoral arterial line. Distal extremity pulses were also reduced but she had faint posterior tibial pulses bilaterally. Her chest x-ray showed a widened proximal mediastinum, although this was a portable film and notably did not show any evidence of pulmonary edema. Her echocardiogram shows what looks like a fairly volume starved ventricle. There is evidence of aortic regurgitation, which is difficult to quantitate based on the quality of the exam, and overall ventricular contractility looks fairly normal on my cursory review with no obvious clear regional wall motion abnormalities. It was felt emergent to get the patient to a cardiac surgical program based on these findings. Dr. Lyle has accepted the patient, and the ambulance crew arrived in a timely fashion. The patient has required several amps of epinephrine for hypotension and bradycardia, and I suspect that that right coronary artery is again occluded with right ventricular ischemia and sinus node ischemia. She has responded well to the epinephrine doses and has had a fairly stable bigeminal rhythm throughout. The intraaortic balloon was left in place, and the patient transported to the ambulance. I called and spoke with Dr. Lyle and relayed these details in hopes that they would be useful as well. TIME SPENT: A total of 60 minutes was spent with critical care time at the bedside with this critically ill patient.
--- NOTE | 2016-12-18 11:48 | PCM.PNMED ---
Subjective Date of Service Dec 18, 2016 Subjective Subjective: no history elicited from the patient at she was intubated. An echocardiogram was done this morning which showed aortic dissection, and the patient was emergently transferred to for surgery. Overnight: Pt became hemodynamically unstable during catheterization and a code blue was called. Pt was delivered 4 shocks, no CPR was done. ROS: unable to obtain ROS as pt is currently intubated. Exam Vital Signs Vital Sign - Last Date Time Temp Pulse Resp B/P Pulse Ox O2 Delivery O2 Flow Rate FiO2 12/18/16 08:00 75 181/72 97 60 12/18/16 03:03 20 Mechanical Ventilator 12/18/16 02:46 36.0 12/17/16 20:47 3 Intake and Output 12/17/16 12/17/16 12/18/16 Cumulative From/Thru 15:00 23:00 07:00 12/17/16 20:13 - 12/18/16 06:18 Intake Total 1800 ml 2141 ml 3941 ml Output Total 500 ml 500 ml Balance 1800 ml 1641 ml 3441 ml Intake Oral 0 ml 0 ml IV Total 1800 ml 2141 ml 3941 ml Output Urine Total 350 ml 350 ml Gastric Drainage Total 150 ml 150 ml # Bowel Movements 0 0 Exam General: Intubated and sedated obese female. HEENT: Normocephalic, atraumatic. External ears without defect. Pupils equal, round, and sluggish but reactive to light. Cardiovascular: Difficult to auscultate secondary to IABP, holosystolic murmur normal rate. Pulmonary: Mechanically ventilated with equal air entry bilaterally and symmetric chest rise. Lungs sounds diminished but grossly clear without obvious crackles or wheezing. Abdomen: Soft, obese and nondistended. Unable to asses for tenderness due to patient sedation. Bowel tones diminished. No masses appreciated. Extremities: Distal pulses 2/4 lower ext b/l, trace edema ankles w/reticular veins medial/lateral malleolus, old surgical scar left ankle, no cyanosis. B/l cath sites at the groin without hematoma or bleeding, IABP in place. : Jackman catheter in place. Skin: Cool, pale with normal turgor, no rashes or ulcerations appreciated. Neurological: Sedated. Unable to asses. Psychiatric: Sedated. Unable to asses. IVs and Medications IV Fluids 2000 mL normal saline delivered with IV medications Medications Reviewed: Medications were reviewed in detail Medications High-risk medications include: Lorazepam Propofol Epinephrine Fentanyl Lab and Diagnostics Result Diagram: 12/18/16 0500 12/18/16 0707 X-Rays, CTs and MRIs (12/17/16) CT BRAIN WITHOUT CONTRAST INDICATIONS: ams, inf CA, pre-heparin IMPRESSION: Prominent and persistent movement by patient. Gross blood is not identified. Small contusions or extra-axial blood cannot be excluded. Dictated and approved by: Maxim Royal M.D. on 12/17/2016 at 20:51 ADDENDUM This report includes an Addendum and supersedes previous reports for this exam. (12/17/16) CT BRAIN WITHOUT CONTRAST INDICATIONS: ams, inf CA, pre-heparin IMPRESSION: Prominent and persistent movement by patient. Gross blood is not identified. Small contusions or extra-axial blood cannot be excluded. Dictated and approved by: Maxim Royal M.D. on 12/17/2016 at 20:51 ADDENDUM: Patient was brought back to the scanner . This attempt shows the axial images and reconstructions in bone setting images. There is no acute intracranial abnormality. No old or acute infarct is seen. Monsivais-white matter interface is normal. No mass effect or edema is seen. Summary impression: No abnormalities found intracranially. Dictated and approved by: Maxim Royal M.D. on 12/17/2016 at 21:16 Cardiac Echo Impressions Echocardiogram The ejection fraction is estimated to be 70-75%. The right ventricle is mildly dilated with low normal systolic function. There is severe aortic regurgitation. The aortic root is severely dilated. Disecting ascending aortic aneurysm measuring 5.8 cm at cornary sinus level and 5.9 cm distally. Dissection extends at least to aortic arch. There is a trivial to small pericardial effusion noted. Emergent transfer being arranged for [facility] for emergent surgical evaluation/management. Assessment & Plan 56 year old female with a history of chronic pain with opioid dependence, previous back and neck surgeries. Family states that the patient also has " heart issues" with lower leg edema presented to the ED via EMS for possible STEMI. Admitted to the CCU from the manufacturing lab technician with IABP. Acute STEMI. Present on admission. Stable -Pt presented with sudden onset of severe chest pain. No known CAD or hx of similar episode, but positive hx of current tobacco use. -She is visiting from [place], [place]. Family deny hx of HTN, HLD or DM. -ECG & head CT, as above. Potassium 3.9, magnesium 1.8, BNP 230.6. -CODE BLUE called to the manufacturing lab technician for hemodynamic instability and ventricular arrhythmias. Pt received 4 shocks, no compressions. -Admitted to CCU with IABP and continuous cardiac monitoring. -Echocardiogram this morning showed dissection through the aortic arch, cardiology was contacted and made the decision to emergently transfer the patient to . Acute respiratory failure. Present on admission. Active -Pt hypotensive with altered mental status in setting of acute STEMI. -Intubated in the ED prior to cath procedure -Sedated and intubated on arrival to CCU. -Fentanyl, propofol used for sedation Altered mental status, acute. Present on admission. Active. -Uncertain etiology. Possibly due to hypotension -Pt's family deny history of alcohol or illicit drug use and confirm chronic pain, treated with Suboxone. -Head CT negative for acute intracranial abnormality. -Intubated and sedated in the CCU. Leukocytosis, acute. Present on admission. Active -Likely secondary to stress reaction in setting of STEMI. Hyperglycemia, likely acute. Present on admission. Active. -Pt without known history of diabetes. Limited records as patient is from out of town. -Serum glucose 159 at presentation, likely stress reaction. -HbA1c 5.4 Chronic pain. Present on admission. Active. -Pt with history of multiple back/neck as well as ankle surgeries. Currently outpatient treatment- Dilaudid. -Currently sedated on fentanyl and propofol. CODE STATUS: FULL CODE GI Prophylaxis: Famotidine DVT Prophylaxis: Sub-q Heparin, 5,000units Q8h PRN: Acetaminophen-fever/headache/mild/moderate pain Antiemetics, as needed Bowel regimen, as needed. Disposition: Patient was emergently transferred to [facility] due to dissecting aortic aneurysm found this morning on echocardiogram. GI Prophylaxis: H2 abundio VTE Prophylaxis: Other (IV heparin post STEMI) Resuscitation Status: CPR: Attempt Resuscitation Alberto Retana DO Dec 18, 2016 11:48 Allie Jain DO Dec 22, 2016 19:20 Antiemetics, as needed Bowel regimen, as needed. Disposition: Patient admitted under inpatient status with expected length of stay > 2 midnights for severity of present symptoms, complexities of treatment plan and risk for adverse event. GI Prophylaxis: H2 abundio VTE Prophylaxis: Other (IV heparin post STEMI) Resuscitation Status: CPR: Attempt Resuscitation Alberto Retana DO Dec 18, 2016 11:48
--- NOTE | 2016-12-18 13:06 | PCM.PNCARD ---
Subjective Date of service Dec 18, 2016 Chief Complaint Type 1 aortic dissection History of Present Illness 56-year-old woman with no known medical history admitted with ST elevation MT and then having VF arrest in the Plant [employer]. Following VF arrest, patient had a intra-aortic balloon pump placement. In the morning today, patient underwent an echo that showed type 1 ascending aortic dissection extending to aortic arch. Subjective: Patient intubated and unable to provide any story. No family at bedside. Exam Vital Signs Vital Sign - Last Date Time Temp Pulse Resp B/P Pulse Ox O2 Delivery O2 Flow Rate FiO2 12/18/16 08:00 75 181/72 97 60 12/18/16 03:03 20 Mechanical Ventilator 12/18/16 02:46 36.0 12/17/16 20:47 3 Intake and Output 12/17/16 12/17/16 12/18/16 Cumulative From/Thru 15:00 23:00 07:00 12/17/16 20:13 - 12/18/16 06:18 Intake Total 1800 ml 2141 ml 3941 ml Output Total 500 ml 500 ml Balance 1800 ml 1641 ml 3441 ml Intake Oral 0 ml 0 ml IV Total 1800 ml 2141 ml 3941 ml Output Urine Total 350 ml 350 ml Gastric Drainage Total 150 ml 150 ml # Bowel Movements 0 0 Gen kaylen: intubated, sedated Lab and Diagnostics Result Diagram: 12/18/16 0500 12/18/16 0707 X-Rays, CTs and MRIs Echo today: The ejection fraction is estimated to be 70-75%. The right ventricle is mildly dilated with low normal systolic function. There is severe aortic regurgitation. The aortic root is severely dilated. Disecting ascending aortic aneurysm measuring 5.8 cm at cornary sinus level and 5.9 cm distally. Dissection extends at least to aortic arch. There is a trivial to small pericardial effusion noted. 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 Following VF arrest, patient had a intra-aortic balloon pump placement. In the morning today, patient underwent an echo that showed type 1 ascending aortic dissection extending to aortic arch: # Type 1 ascending aortic dissection with severe aortic regurgitation: Suspected etiology either idiopathic that led to the presentation of inferior STEMI or iatrogenic during Procedure itself. Her SBP is in the 90s-100s range on femoral arterial line. I called CT surgery and spoke with Dr. Rodriguez about need for emergent transfer and surgery. Dr. Rodriguez stated that all of his OR are occupied and we should try other major facilities but he is willing to accept if none have OR availability. I then called Dr. Adilson Lyle at [facility] surgery [place] who kindly accepted the patient. He also suggested that we don't take out the IABP at this time and he will do an emergent CT scan at [place] once the patient arrives. # Inferior STEMI: patient had reperfusion with wire and no angioplasty or stents were placed. Will defer further management to CT surgeon. Problems: Pain Evaluation: Adequate Pain Control GI Prophylaxis: H2 abundio VTE Prophylaxis: Other (IV heparin post STEMI) Resuscitation Status: CPR: Attempt Resuscitation Time spent I spent 97 minutes of critical care time evaluating and managing this patient, including transfer calls to use a [facility] and [facility]. Luz Elena Tracey MD Dec 18, 2016 13:06
--- NOTE | 2016-12-18 13:18 | NUR ---
Left [facility] at 1020. patient on our parapac transport vent. VT 480 RR 15 peep 5 100%. Patient desat x3 to 77 after suctioning patient saturation increase to 98%. No other respiratory issues noted end tidal stayed at 31-33. Turned patient over to [facility] at 1105. I arrived back at [facility] at 1308.
--- NOTE | 2016-12-18 13:39 | DRSVH ---
PROCEDURE: X-RAY CHEST ONE VIEW ([id number]) INDICATIONS: INTUBATED, NG TUBE PLACEMENT TECHNIQUE: One view of the chest was acquired. COMPARISON: [facility], CR, XR CHEST 1VW (PORTABLE), 12/18/2016, 4:51. FINDINGS: Surgical changes and devices: ETT projected 3.1 cm above the doug. Nasogastric tube traverses the GE junction. Lower cervical spine fixation hardware. Lungs and pleura: No pleural effusions or pneumothorax. Lungs are clear. Mediastinum: Mediastinal contours appear normal. Heart size is normal. Bones and chest wall: No suspicious bony lesions. Overlying soft tissues appear unremarkable. IMPRESSION: Support lines and tubes as above and no acute cardiopulmonary process identified. Dictated by: Bennie Avila [facility] Interpreted: Umer Ortega MD on 12/18/2016 at 10:09 Approved by: Umer Ortega M.D. on 12/18/2016 at 13:38
--- NOTE | 2016-12-18 13:40 | DRSVH ---
PROCEDURE: X-RAY CHEST ONE VIEW, PORTABLE ([id number]) INDICATIONS: Intubated; s/p cardiac cath w/IABP TECHNIQUE: One view of the chest was acquired. COMPARISON: [facility], CR, XR CHEST 1VW, 12/17/2016, 22:59. FINDINGS: Surgical changes and devices: Stable positioning of the ETT and nasogastric tube. Aortic balloon cat heter present tip projected over the level of the aortic arch. Lungs and pleura: No pleural effusions or pneumothorax. Lungs are clear. Mediastinum: Mediastinal contours appear normal. Heart size is normal. Bones and chest wall: No suspicious bony lesions. Overlying soft tissues appear unremarkable. IMPRESSION: No acute cardiopulmonary disease. Dictated by: Bennie MCCAIN Interpreted: Umer Ortega MD on 12/18/2016 at 10:10 Approved by: Umer Ortega M.D. on 12/18/2016 at 13:38
--- NOTE | 2016-12-18 13:46 | NUR ---
Assumed care of unstable patient at 0800 this morning, report from LISA Woo. On vent support with increasing 02 needs. Rhythm appeared junctional with increasing frequency of PACs, occasional run of what appears to be a ventricular escape rhythm. Dopamine being titrated down, Epinephrine gtt increased with intermittent bolus doses and NS wide open to maintain a MAP of 60. Amiodarone stopped when patient started having bradycardia. Fentanyl infusion, intermittent Ativan IVPs for comfort/sedation with good effect. Noted that augmented pressures on balloon pump are lower than arterial line pressures. ECHO done, reportedly showing an "aortic dissection"; STAT transfer arranged to [facility]. Family updated by physician, permission to transfer obtained. Continued to require intermittent bolus doses of 0.25-.5 mg IV Epinephrine in route via ambulance/ALS to [facility]. Stat head and chest CT done upon arrival; care transferred to [facility] RN, report given prior to transfer.
--- NOTE | 2016-12-18 15:20 | NUR ---
Belongings-1 large andreasag found in ambulance upon returning from [facility] where Germaine was transferred. Phoned her mother, Stefania, who is aware that it is here for her to seed cone picker; she stated that it will probably be tomorrow or within a few days before she can get here to get it. drier operator/Kailey aware. Bag is located at CCU assistant unit forester's desk.
--- NOTE | 2016-12-18 22:25 | NUR ---
Change of Shift Late Entry: During change of shift, it was noted that the patient's MAP was maintaining at 50, Dr. Mccracken and additional Resident MD spoke to in the dictation room and informed of patient's grave condition, increasingly-fast decreasing MAP, being Maxed out on Dopamine gtt as per order once patient's weight changed from Actual 110kg to ideal body weight of 5'9'' person which is 66kg at 20mcg/kg/minute. MD's informed of previous orders for NS boluses. Order received for additional 500ml NS bolus. Propofol sedation decreased by half. Residents spoke about wanting to switch patient from Dopamine to Epinephrine gtt. MAP low 40s and dropping. Residents x2 in dictation lounge informed of patient's status and mentioned that patient is about to code. Epinephrine gtt ordered electronically, call placed to certified pharmacy technician for STAT epi-drip. Crash Cart Pulled outside of patient's room. Dr. Haile Mccracken at bedside. ordered 0.5mg of Epinephrine IVP for MAP in the high 30s and dropping with good but fleeting effects to the patient's BP. Additional 0.25mg Epinephrine IVP administered per Dr. Mccracken's request. Dr. Sidhu now at bedside. dental laboratory supervisor called by Day strand and binder controllerLISA Dexter and they came in to confirm balloon pump machine accuracy. Cloth Sander stated he was going to try and "Purge the line". Cloth Sander stated machine is running appropriately. Mame Torres CCU Nurse Educator. at bedside along with Day strand and binder controllerLISA Dexter. room service manager outside room observing. Propofol sedation turned off. Fentanyl gtt stopped. Cheeta hemodynamics monitor placed on patient. Epinephrine gtt received from pharmacy. Started at 0.05mcg/kg/minute based on [place] body weight of 66kg. Quickly increased epinephrine gtt to .[address] Sidhu request, decreased dopamine gtt to 15mcg/kg/minute, increased to .2; increased to .4mcg/kg/minute of epinephrine, dopamine decreased to 10mcg/kg/minute. Dr. Sidhu ordered additional 0.25mg of Epinephrine IVP. Pt agitated and displaying seizure like activity. Order received for Ativan 2mg IVP. Later a subsequent dose of Ativan 1mg IVP administered. Keppra loading dose administered. Report given to Lena Faulkner CCU RN just as community arts centre manager was coming in the room to perform STAT ECHO.
--- NOTE | 2016-12-19 15:37 | PCM.DC.MED ---
Discharge Summary Date of Service Dec 19, 2016 Dates of Hospitalization Date of Hospital Admission Dec 17, 2016 at 20:40 Date of Discharge: Dec 18, 2016 Providers: Admitting Physician: Pavithra Khan MD Primary Care Physician: Merary Attending Physician: Allie Jain DO Diagnosis at Time of Discharge Diagnosis at Time of Discharge Acute STEMI. Present on admission. Stable Acute aortic dissection, present on admission, active Acute respiratory failure. Present on admission. Active Altered mental status, acute. Present on admission. Active. Leukocytosis, acute. Present on admission. Active Hyperglycemia, likely acute. Present on admission. Active. Chronic pain. Present on admission. Active. . Consultations Cardiology: Dr. Demarco Procedures XRay, CTs & MRIs (12/17/16) CT BRAIN WITHOUT CONTRAST INDICATIONS: ams, inf [place], pre-heparin IMPRESSION: Prominent and persistent movement by patient. Gross blood is not identified. Small contusions or extra-axial blood cannot be excluded. Dictated and approved by: Maxim Royal M.D. on 12/17/2016 at 20:51 ADDENDUM This report includes an Addendum and supersedes previous reports for this exam. (12/17/16) CT BRAIN WITHOUT CONTRAST INDICATIONS: ams, inf [place], pre-heparin IMPRESSION: Prominent and persistent movement by patient. Gross blood is not identified. Small contusions or extra-axial blood cannot be excluded. Dictated and approved by: Maxim Royal M.D. on 12/17/2016 at 20:51 ADDENDUM: Patient was brought back to the scanner . This attempt shows the axial images and reconstructions in bone setting images. There is no acute intracranial abnormality. No old or acute infarct is seen. Monsivais-white matter interface is normal. No mass effect or edema is seen. Summary impression: No abnormalities found intracranially. Dictated and approved by: Maxim Royal M.D. on 12/17/2016 at 21:16 Cardiac Echo Impression Echocardiogram The ejection fraction is estimated to be 70-75%. The right ventricle is mildly dilated with low normal systolic function. There is severe aortic regurgitation. The aortic root is severely dilated. Disecting ascending aortic aneurysm measuring 5.8 cm at cornary sinus level and 5.9 cm distally. Dissection extends at least to aortic arch. There is a trivial to small pericardial effusion noted. Emergent transfer being arranged for [facility] for emergent surgical evaluation/management. Invasive Procedures INTERVENTIONAL CARDIAC CATHETERIZATION PROCEDURE: 1. Retrograde left heart catheterization. 2. Selective angiography. 3. Intra-atrial balloon insertion. 4. Defibrillation x4. 5. Percutaneous coronary intervention to the occluded proximal right coronary artery. RESULTS: 1. Selective coronary angiogram. a. Left main coronary artery: Normal. b. The left anterior descending artery is transapical and has minor 30% stenosis in the midportion. c. The circumflex artery has minor irregularity. d. The dominant and large right coronary artery is occluded in the proximal portion. 2. Percutaneous coronary intervention was performed to the occluded right coronary artery, was performed successfully. There is residual 30% stenosis with MATTHEW-3 flow. 3. Noted, the ST-segment returned to baseline at the end of the procedure. Pavithra Khan MD 12/17/16 1952 Brief History 56 year old female with a history of chronic pain with opioid dependence, previous back and neck surgeries. Family states that the patient also has " heart issues" with lower leg edema presented to the ED via EMS for possible STEMI. Upon arrival she was quickly taken to the [facility], where she was found to have 30% stenosis of the LAD, right coronary artery was largely occluded. Percutaneous coronary intervention was performed successfully with 30% residual stenosis and resolution of ST segment elevation. During the procedure the patient became hemodynamically unstable with ventricular arrhythmia. The patient was shocked 4 times but no CPR was required. Following the procedure she was admitted to the CCU from the slab installer with an intra-aortic balloon pump. Patient remained hemodynamically unstable and a stat echocardiogram was ordered which showed aortic dissection "measuring 5.8 cm at coronary sinus level and 5.9 cm distally" at this point plans were made to transfer the patient to for further management. Hospital Course 56 year old female with a history of chronic pain with opioid dependence, previous back and neck surgeries. Family states that the patient also has " heart issues" with lower leg edema presented to the ED via EMS for possible STEMI. Admitted to the CCU from the slab installer with Intra-aortic balloon pump ( IABP). Acute STEMI. Present on admission. Stable -Pt presented with sudden onset of severe chest pain. No known CAD or hx of similar episode, but positive hx of current tobacco use. -She is visiting from [place], [place]. Family deny hx of HTN, HLD or DM. -ECG & head CT, as above. Potassium 3.9, magnesium 1.8, BNP 230.6. -CODE BLUE called to the slab installer for hemodynamic instability and ventricular arrhythmias. Pt received 4 shocks, no compressions. -Admitted to CCU with IABP and continuous cardiac monitoring. -Echocardiogram this morning showed dissection through the aortic arch, cardiology was contacted and made the decision to emergently transfer the patient to . Acute respiratory failure. Present on admission. Active -Pt hypotensive with altered mental status in setting of acute STEMI. -Intubated in the ED prior to cath procedure -Sedated and intubated on arrival to CCU. -Fentanyl, propofol used for sedation Altered mental status, acute. Present on admission. Active. -Uncertain etiology. Possibly due to hypotension -Pt's family deny history of alcohol or illicit drug use and confirm chronic pain, treated with Suboxone. -Head CT negative for acute intracranial abnormality. -Intubated and sedated in the CCU. Leukocytosis, acute. Present on admission. Active -Likely secondary to stress reaction in setting of STEMI. Hyperglycemia, likely acute. Present on admission. Active. -Pt without known history of diabetes. Limited records as patient is from out of town. -Serum glucose 159 at presentation, likely stress reaction. -HbA1c 5.4 Chronic pain. Present on admission. Active. -Pt with history of multiple back/neck as well as ankle surgeries. Currently outpatient treatment- Dilaudid. -Currently sedated on fentanyl and propofol. CODE STATUS: FULL CODE GI Prophylaxis: Famotidine DVT Prophylaxis: Sub-q Heparin, 5,000units Q8h Exam Vital Signs (Last) Date Time Temp Pulse Resp B/P Pulse Ox O2 Delivery O2 Flow Rate FiO2 12/18/16 08:00 75 181/72 97 60 12/18/16 08:00 36.5 15 Mechanical Ventilator 12/17/16 20:47 3 Exam General: Intubated and sedated obese female. HEENT: Normocephalic, atraumatic. External ears without defect. Pupils equal, round, and sluggish but reactive to light. Cardiovascular: Difficult to auscultate secondary to IABP, holosystolic murmur normal rate. Pulmonary: Mechanically ventilated with equal air entry bilaterally and symmetric chest rise. Lungs sounds diminished but grossly clear without obvious crackles or wheezing. Abdomen: Soft, obese and nondistended. Unable to asses for tenderness due to patient sedation. Bowel tones diminished. No masses appreciated. Extremities: Distal pulses 2/4 lower ext b/l, trace edema ankles w/reticular veins medial/lateral malleolus, old surgical scar left ankle, no cyanosis. B/l cath sites at the groin without hematoma or bleeding, IABP in place. : Jackman catheter in place. Skin: Cool, pale with normal turgor, no rashes or ulcerations appreciated. Neurological: Sedated. Unable to asses. Psychiatric: Sedated. Unable to asses. Test 12/17/16 20:35 12/17/16 21:28 12/17/16 23:22 12/18/16 01:36 Pro-B-Type Natriuretic Peptide 230.6pg/mL (0-249) Hemoglobin A1c 5.4% (4.8-5.6) Total Bilirubin 1.0mg/dL (0.0-1.2) Aspartate Amino Transf (AST/SGOT) 167U/L (0-50) Alanine Aminotransferase (ALT/SGPT) 51U/L (0-32) Alkaline Phosphatase 134U/L (25-150) Total Protein 5.3g/dL (6.4-8.4) Albumin 3.3g/dL (3.4-5.0) Thyroid Stimulating Hormone (TSH) 2.220uIU/mL (0.450-4.500) Hold Urine Received (Received) Test 12/18/16 01:38 12/18/16 05:00 12/18/16 07:07 Urine Color Yellow (YELLOW) Urine Appearance Hazy (CLEAR,HAZY) Urine pH 5.5 (5.0-8.0) Urine Specific Castaner 1.015 (1.003-1.035) Urine Protein 100mg/dL (NEG,TRACE) Urine Glucose (UA) Negativemg/dL (NEGATIVE) Urine Ketones Negativemg/dL (NEGATIVE) Urine Occult Blood Large (NEGATIVE) Urine Nitrite Negative (NEGATIVE) Urine Bilirubin Negative (NEGATIVE) Urine Urobilinogen Normalmg/dL (NORMAL) Urine Leukocyte Esterase Negative (NEGATIVE) Urine RBC 11-50/hpf (0-2) Urine WBC 0-5/hpf (0-5) Urine Epithelial Cells Moderate/hpf (NONE-MOD) Urine Crystals None seen (NONE SEEN) Urine Bacteria Moderate/hpf (NONE-FEW) Urine Hyaline Casts Occasional/lpf (NONE) Urine Granular Casts Occasional (NONE SEEN) Urine Waxy Casts None seen (NONE SEEN) Urine Red Blood Cell Casts None seen (NONE SEEN) Urine White Blood Cell Casts None seen (NONE SEEN) Urine Mucus None seen (None Seen) Urine Trichomonas None seen (NONE SEEN) Urine Yeast None (NONE SEEN) Urinalysis Comment None Urine Culture Reflexed Indicated White Blood Count 15.1th/mm3 (3.8-10.1) Red Blood Count 4.76mil/mm3 (3.90-5.20) Hemoglobin 14.0g/dL (12.0-15.6) Hematocrit 41.0% (35.0-46.0) Mean Corpuscular Volume 86.1fL (81-100) Mean Corpuscular Hemoglobin 29.4pg (27.0-35.0) Mean Corpuscular Hemoglobin Concent 34.1% (32.0-37.0) Red Cell Distribution Width 14.6% (12.3-15.4) Platelet Count 254bil/L (150-400) Neutrophils (%) (Auto) 66.4% (40-74) Lymphocytes (%) (Auto) 15.4% (14-46) Monocytes (%) (Auto) 17.6% (4-12) Eosinophils (%) (Auto) 0% (0-5) Basophils (%) (Auto) 0.3% (0-3) Phosphorus Level 2.5mg/dL (2.5-4.9) Magnesium Level 1.7mg/dL (1.6-2.6) Total Creatine Kinase 2915U/L (21-215) Creatine Kinase MB 212.8ng/mL (0.0-5.3) Creatine Kinase MB % 7.3% (0.0-5.0) Troponin T 6.93ug/L (0.0-0.011) Triglycerides Level 82mg/dL (0-149) Cholesterol Level 103mg/dL (100-199) LDL Cholesterol, Calculated 26.600mg/dL (0-99) VLDL Cholesterol 16.400mg/dL HDL Cholesterol 60mg/dL (>39) Cholesterol/HDL Ratio 1.72 (0.0-4.4) Procalcitonin 0.56ng/mL (0.00-0.08) Sodium Level 141mEq/L (134-144) Potassium Level 4.6mEq/L (3.5-5.2) Chloride Level 109mEq/L (97-108) Carbon Dioxide Level 17mmol/L (18-29) Blood Urea Nitrogen 13mg/dL (6-24) Creatinine 0.94mg/dL (0.57-1.00) Estimat Glomerular Filtration Rate 89mL/min (>59) Glucose Level 133mg/dL (60-99) Calcium Level 7.3mg/dL (8.5-10.1) Discharge Medications As needed Hydromorphone (Hydromorphone) 2 Mg Tablet 2 MG PO q6hr PRN PRN Pain (Reported) Promethazine (Promethazine) 25 Mg Tablet 25 MG PO Q6H PRN PRN For Nausea ( Reported) Sumatriptan (Imitrex) 25 Mg Tablet 25 MG PO PRN migraine (Reported) diphenhydrAMINE HCl (Benadryl) 25 Mg Capsule 25 MG PO HS PRN PRN (Reported) Followup Plan Disposition: Patient transferred to [facility] Time spent Greater than 70 minutes spent on documentation and coordination of discharge. Attending Statement The patient was seen and examined together with Dr. Retana on 12/19/16 and I have added additional information to the note above. Alberto Retana DO Dec 19, 2016 15:37 Allie Jain DO Dec 22, 2016 14:01
== END 2016-12-18 10:26 | disposition short-term general hospital (02) | DRG 270 ==
LOC: SED 20:10 → CCU 20:40
PROVIDERS: ADMIT Internal Medicine Interventional Cardiology; ATTEND Neuromusculoskeletal Medicine & OMM
PROC: 4A033R1 Measurement of Arterial Saturation, Peripheral, Percutaneous Approach (ICD-10-PCS; 2016-12-17)
PROC: 0BH17EZ Insertion of Endotracheal Airway into Trachea, Via Natural or Artificial Opening (ICD-10-PCS; 2016-12-17)
PROC: 5A1935Z Respiratory Ventilation, Less than 24 Consecutive Hours (ICD-10-PCS; 2016-12-17)
PROC: 5A02210 Assistance with Cardiac Output using Balloon Pump, Continuous (ICD-10-PCS; principal; 2016-12-18)
PROC: 02703ZZ Dilation of Coronary Artery, One Artery, Percutaneous Approach (ICD-10-PCS; 2016-12-18)
PROC: 5A2204Z Restoration of Cardiac Rhythm, Single (ICD-10-PCS; 2016-12-18)
PROC: B2111ZZ Fluoroscopy of Multiple Coronary Arteries using Low Osmolar Contrast (ICD-10-PCS; 2016-12-18)
DX: I21.19 ST elevation (STEMI) myocardial infarction involving other coronary artery of inferior wall (principal); I71.01 Dissection of thoracic aorta; I49.01 Ventricular fibrillation; J96.00 Acute respiratory failure, unspecified whether with hypoxia or hypercapnia; F11.20 Opioid dependence, uncomplicated; F17.200 Nicotine dependence, unspecified, uncomplicated; G89.29 Other chronic pain; R73.9 Hyperglycemia, unspecified